=== PATIENT | male | born 1960 | race Caucasian/White ===

== ENCOUNTER 2021-08-22 11:25 | Day surgery (SDC) | payer OTHER ==
[2021-08-22] MEDS ORDERED: FERRIC CARBOXYMALTOSE 750 MG in SODIUM CHLORIDE 250 ML IVPB ONE (12:00)
[2021-08-22 12:59] VITALS: BP 124/90; PULSE 60; TEMP 98.2
== END 2021-08-22 13:31 | disposition home or self-care (01) ==
LOC: FINFUSION 11:25 → FM/S 11:29 → FINFUSION 13:31
PROVIDERS: ATTEND Family Medicine
PROC: 3E033GC Introduction of Other Therapeutic Substance into Peripheral Vein, Percutaneous Approach (ICD-10-PCS; principal; 2021-08-22)
DX: D50.9 Iron deficiency anemia, unspecified (principal)
CPT/HCPCS: 96365; J1439

== ENCOUNTER 2021-08-29 11:14 | Day surgery (SDC) | payer OTHER ==
[2021-08-29] MEDS ORDERED: FERRIC CARBOXYMALTOSE 750 MG in SODIUM CHLORIDE 250 ML IVPB ONE (12:00)
[2021-08-29 13:08] VITALS: BP 125/77; PULSE 64; TEMP 98.1
== END 2021-08-29 13:23 | disposition home or self-care (01) ==
LOC: FINFUSION 11:14 → FM/S 11:15 → FINFUSION 13:23
PROVIDERS: ATTEND Family Medicine
PROC: 3E033GC Introduction of Other Therapeutic Substance into Peripheral Vein, Percutaneous Approach (ICD-10-PCS; principal; 2021-08-29)
DX: D50.9 Iron deficiency anemia, unspecified (principal)
CPT/HCPCS: 96365; J1439